=== PATIENT | male | born 1960 | race Caucasian/White ===

== ENCOUNTER → 2017-04-16 | Outpatient (CLI) | payer OTHER | LOC: LAB 18:18 | DX: Z51.81 Encounter for therapeutic drug level monitoring (principal); Z79.899 Other long term (current) drug therapy | CPT/HCPCS: 36415; 80076 ==

== ENCOUNTER → 2021-10-05 | Outpatient (CLI) | payer OTHER | LOC: EXRD 12:46 | DX: I83.12 Varicose veins of left lower extremity with inflammation (principal) | CPT/HCPCS: 93926; 93971 ==